=== PATIENT | female | born 1980 | race African-American/Black ===

== ENCOUNTER 2017-03-03 10:49 | Emergency (ER) | payer OTHER ==
[~2017-03-03] VITALS: Ht 165.1 cm; Wt 45.4 kg
[~2017-03-03 10:49] MED LIST: NAPROSYN500 MG PO; NORCO 5-325 TA1 EACH PO; TYLENOL W/CODEI1 TA2 PO; XANAX 0.5 MG0.5 MG PO
[2017-03-03] MEDS ORDERED: PROTONIX40 M1 PO (11:08)
[2017-03-03] MEDS ORDERED: VITAMIN D2000 UNIT PO (11:09)
[2017-03-03 11:24] LABS: ABSOLUTE NEUTROPHILS 1.2 thou/uL (1.4-8.2); BASOPHILS 1.2 % (0.0-2.0); EOSINOPHILS 3.4 % (0.0-3.0); HEMATOCRIT 37.9 % (37.0-47.0); HEMOGLOBIN 12.8 gm/dL (12.0-15.0); LYMPHOCYTES 55.9 % (24.0-44.0); MANUAL DIFF NO; MCH 30.2 pg (26.0-34.0); MCHC 33.7 g/dL (28.0-37.0); MCV 89.4 fL (80.0-100.0); MONOCYTES 8.3 % (1.0-8.0); PLATELET COUNT 138 thou/uL (150-400); POLYS 31.2 % (36.0-66.0); RBC 4.23 mil/uL (4.20-5.00); WBC 3.9 thou/uL (4.0-11.0)
[2017-03-03 12:01] LABS: CALCIUM 8.6 mg/dL (8.5-10.1); CREATININE 0.7 mg/dL (0.6-1.0); POTASSIUM 3.3 mmol/L (3.5-5.1)
[2017-03-03 12:28] VITALS: BP 147/64
== END 2017-03-03 12:28 | disposition home or self-care (01) ==
LOC: ER 10:49
PROVIDERS: Emergency Medicine
DX: R51 Headache (principal); E87.6 Hypokalemia

== ENCOUNTER 2019-02-27 18:48 | Emergency (ER) | payer OTHER ==
[~2019-02-27] VITALS: Ht 165.1 cm; Wt 49.9 kg
[~2019-02-27 18:48] MED LIST changes: +PROTONIX40 M1 PO; +VITAMIN D2000 UNIT PO
[2019-02-27] MEDS ORDERED: MOBIC7.5 MG PO (19:48)
[2019-02-27 20:27] VITALS: BP 114/66
== END 2019-02-27 20:28 | disposition home or self-care (01) ==
LOC: ER 18:48
DX: M72.2 Plantar fascial fibromatosis (principal); M77.9 Enthesopathy, unspecified

== ENCOUNTER 2019-04-13 19:01 | Emergency (ER) | payer OTHER ==
[~2019-04-13] VITALS: Ht 165.1 cm; Wt 49.9 kg
[~2019-04-13 19:01] MED LIST changes: +MOBIC7.5 MG PO
[2019-04-13 19:21] LABS: URINE BILIRUBIN NEGATIVE (Negative); URINE BLOOD TRACE (Negative); URINE CLARITY CLEAR; URINE COLOR YELLOW; URINE GLUCOSE-RANDOM* NEGATIVE (Negative); URINE KETONES NEGATIVE (Negative); URINE LEUKOCYTES-REFLEX NEGATIVE (Negative); URINE NITRITE-REFLEX NEGATIVE (Negative); URINE PROTEIN (DIPSTICK) NEGATIVE (Negative); URINE SPECIFIC GRAVITY <= 1.005 (1.005-1.035); URINE UROBILINOGEN 0.2 E.U./dl (0.2-1.0)
[2019-04-13 19:28] LABS: AMP/METHAMP Negative (Negative); BARBITURATES Negative (Negative); BENZODIAZEPINES Negative (Negative); COCAINE Negative (Negative); METHADONE Negative (Negative); OPIATES Negative (Negative); PCP Negative (Negative)
[2019-04-13 20:32] LABS: ABSOLUTE NEUTROPHILS 2.1 thou/uL (1.4-8.2); BASOPHILS 1.9 % (0.0-2.0); EOSINOPHILS 2.3 % (0.0-3.0); HEMATOCRIT 35.5 % (37.0-47.0); LYMPHOCYTES 36.6 % (24.0-44.0); MCH 30.1 pg (26.0-34.0); MCHC 33.8 g/dL (28.0-37.0); MCV 88.8 fL (80.0-100.0); MONOCYTES 7.5 % (1.0-8.0); PLATELET COUNT 154 thou/uL (150-400); POLYS 51.7 % (36.0-66.0); RDW 14.5 % (10.5-14.5); WBC 4.1 thou/uL (4.0-11.0)
[2019-04-13 20:40] LABS: ANION GAP 8 mmol/L (7-16); BUN 10 mg/dL (7-18); CALCIUM 9.2 mg/dL (8.5-10.1); CHLORIDE 101 mmol/L (98-107); CO2 24 mmol/L (21-32); CREATININE 0.7 mg/dL (0.6-1.0); GLUCOSE 90 mg/dL (74-106); POTASSIUM 3.7 mmol/L (3.5-5.1); SODIUM 133 mmol/L (136-145)
[2019-04-13 20:41] VITALS: BP 130/65
[2019-04-13 20:51] LABS: ALBUMIN 3.8 g/dL (3.4-5.0); MAGNESIUM 1.9 mg/dL (1.8-2.4); SGOT 16 U/L (15-37); SGPT 18 U/L (30-65); TOTAL BILIRUBIN 0.2 mg/dL (<0.1-1.0); TOTAL PROTEIN 7.9 g/dL (6.4-8.2); TROPONIN-I <0.06 ng/mL (<0.06)
[2019-04-13] MEDS ORDERED: PRILOSEC OTC20 MG PO (20:57)
--- NOTE | 2019-04-14 08:37 | EKG ---
[place] [address] [facility] [place] [address] ELECTROCARDIOGRAM REPORT Name: KIA BISHOP [id number] Admission: 04/13/19 Attend Phys: Discharge: 04/13/19 Date of : 76 Report #: [id number] THIS REPORT FOR: //name// [facility] ED Test Date: 2019-04-13 Test Time: 19:11:44 Pat Name: KIA BISHOP Department: Room: Gender: F Electrical Controls Assembler: PATTI : 1980 Requested By: Felipe Arechiga Order Number: [id number] MD: Keyshawn Richardson Measurements Intervals [place] Rate: 81 P: 74 FL: 172 QRS: 52 QRSD: 87 T: -13 QT: 384 QTc: 446 Interpretive Statements Sinus rhythm Probable left atrial enlargement Probable anteroseptal infarct, old Borderline T abnormalities, inferior leads Electronically Signed On 04-14-2019 8:36:59 CDT by Keyshawn Richardson [email or web address] <ELECTRONICALLY SIGNED> By: Keyshawn Richardson MD 04/14/19 0836 D: 08/1910 10 Keyshawn Richardson MD /RHEA
== END 2019-04-13 21:33 | disposition home or self-care (01) ==
LOC: ER 19:01
PROVIDERS: Emergency Medicine
DX: K21.9 Gastro-esophageal reflux disease without esophagitis (principal); Z98.890 Other specified postprocedural states

== ENCOUNTER 2020-04-07 23:55 | Emergency (ER) | payer OTHER ==
[~2020-04-07] VITALS: Ht 165.1 cm; Wt 52.2 kg
[~2020-04-07 23:55] MED LIST changes: +PRILOSEC OTC20 MG PO
[2020-04-08] MEDS ORDERED: NAPROSYN500 MG PO (01:04)
[2020-04-08] MEDS ORDERED: METHOCARBAMOL500 M2 PO (01:04)
[2020-04-08 02:30] VITALS: BP 121/76
--- NOTE | 2020-04-09 08:57 | EKG ---
[facility] [place] [address] ELECTROCARDIOGRAM REPORT Name: KIA BISHOP Room #: DEP [facility]#: [id number] Admission: 04/07/20 Attend Phys: Discharge: 04/08/20 Date of : 76 Report #: [id number] THIS REPORT FOR: cc: [facility] - Clinic physician unknown [facility] - Clinic physician unknown Rivera Sommer MD [facility] THIS REPORT FOR: //name// [facility] ED Test Date: 2020-04-08 Test Time: 01:07:55 Pat Name: KIA BISHOP Department: Room: Gender: F [employer] Supervisor: [facility] M[facility] : 1980 Requested By: Felipe Arechiga Order Number: [id number] MD: Rivera Sommer Measurements Intervals [place] Rate: 82 P: 82 DC: 191 QRS: 54 QRSD: 94 T: 21 QT: 390 QTc: 456 Interpretive Statements Sinus rhythm Cannot rule out septal infarct, old Compared to ECG 04/13/2019 19:11:44 No significant change was found Electronically Signed On 04-09-2020 8:57:07 CDT by Rivera Sommer [email or web address] <ELECTRONICALLY SIGNED> By: Rivera Sommer MD, [facility] 04/09/20 0857 [id number] Rivera Sommer MD, [facility] /EPI
== END 2020-04-08 02:30 | disposition home or self-care (01) ==
LOC: ER 23:55
DX: M43.6 Torticollis (principal); R20.2 Paresthesia of skin; Z88.0 Allergy status to penicillin

== ENCOUNTER 2020-09-20 22:01 | Emergency (ER) | payer OTHER ==
[~2020-09-20] VITALS: Ht 165.1 cm; Wt 47.6 kg
[~2020-09-20 22:01] MED LIST changes: +METHOCARBAMOL500 M2 PO
[2020-09-20 23:00] LABS: ABSOLUTE NEUTROPHILS 1.8 thou/uL (1.4-8.2); BASOPHILS 1.2 % (0.0-2.0); EOSINOPHILS 1.9 % (0.0-3.0); HEMATOCRIT 38.6 % (37.0-47.0); HEMOGLOBIN 12.9 gm/dL (12.0-15.0); LYMPHOCYTES 43.3 % (24.0-44.0); MCH 30.4 pg (26.0-34.0); MCHC 33.4 g/dL (28.0-37.0); MCV 90.9 fL (80.0-100.0); PLATELET COUNT 157 thou/uL (150-400); POLYS 45.6 % (36.0-66.0); RBC 4.24 mil/uL (4.20-5.00); RDW 13.6 % (10.5-14.5); WBC 3.9 thou/uL (4.0-11.0)
[2020-09-20 23:04] LABS: URINE BILIRUBIN NEGATIVE (Negative); URINE BLOOD TRACE (Negative); URINE CLARITY CLEAR; URINE GLUCOSE-RANDOM* NEGATIVE (Negative); URINE KETONES NEGATIVE (Negative); URINE LEUKOCYTES-REFLEX NEGATIVE (Negative); URINE NITRITE-REFLEX NEGATIVE (Negative); URINE PROTEIN (DIPSTICK) NEGATIVE (Negative); URINE SPECIFIC GRAVITY <= 1.005 (1.005-1.035); URINE UROBILINOGEN 0.2 E.U./dl (0.2-1.0)
[2020-09-20 23:04] LABS: CALCIUM 9.2 mg/dL (8.5-10.1); CREATININE 0.9 mg/dL (0.6-1.0); POTASSIUM 3.3 mmol/L (3.5-5.1)
[2020-09-20 23:07] LABS: URINE COLOR YELLOWA
[2020-09-21 00:24] VITALS: BP 116/75
== END 2020-09-21 00:25 | disposition home or self-care (01) ==
LOC: ER 22:01
PROVIDERS: Emergency Medicine
DX: R51.9 Headache, unspecified (principal); E87.6 Hypokalemia; Z79.899 Other long term (current) drug therapy; Z88.0 Allergy status to penicillin

== ENCOUNTER 2020-12-22 23:37 | Emergency (ER) | payer OTHER ==
[~2020-12-22] VITALS: Ht 165.1 cm; Wt 45.4 kg
[2020-12-22 23:43] VITALS: BP 115/72
[2020-12-22] MEDS ORDERED: WOMEN MULTIVIT1 EAC1 PO (23:54)
[2020-12-22] MEDS ORDERED: PROTONIX 20 MG20 MG PO (23:55)
== END 2020-12-23 00:25 | disposition home or self-care (01) ==
LOC: ER 23:37
DX: R20.2 Paresthesia of skin (principal); R51.9 Headache, unspecified; Z98.890 Other specified postprocedural states; Z79.899 Other long term (current) drug therapy; Z88.0 Allergy status to penicillin